=== PATIENT | female | born 1960 | race African-American/Black ===

== ENCOUNTER → 2017-01-01 | Outpatient (CLI) | payer OTHER ==
[~2017-01-01] MED LIST: ASPIRIN 81M81 MG/TA2 PO; BENICAR40 MG PO; COZAAR100 MG PO; FOLIC ACID 11 MG/TA1 PO; MULTIPLE VITAMI1 CAP PO; NORCO 325 MG-51 TAB PO; PLAQUENIL 200M200 MG PO
== END ==
LOC: MC.RAD 13:08
DX: Z12.31 Encounter for screening mammogram for malignant neoplasm of breast (principal)

== ENCOUNTER → 2018-01-14 | Outpatient (CLI) | payer OTHER | LOC: MC.RAD 08:20 | DX: Z12.31 Encounter for screening mammogram for malignant neoplasm of breast (principal) ==

== ENCOUNTER → 2018-06-20 | Outpatient (CLI) | payer OTHER | LOC: COL.VAS 09:06 | DX: I36.1 Nonrheumatic tricuspid (valve) insufficiency (principal); I51.7 Cardiomegaly ==

== ENCOUNTER → 2019-02-21 | Outpatient (CLI) | payer OTHER | LOC: MC.RAD 12:47 | DX: Z12.31 Encounter for screening mammogram for malignant neoplasm of breast (principal) ==

== ENCOUNTER → 2019-12-25 | Outpatient (CLI) | payer OTHER | LOC: COL.VAS 14:04 | DX: I27.20 Pulmonary hypertension, unspecified (principal); I51.7 Cardiomegaly ==

== ENCOUNTER → 2020-03-04 | Outpatient (CLI) | payer OTHER | LOC: MC.RAD 09:20 | DX: Z12.31 Encounter for screening mammogram for malignant neoplasm of breast (principal) ==

== ENCOUNTER → 2021-06-13 | Outpatient (CLI) | payer OTHER | LOC: MC.RAD 10:09 | DX: Z12.31 Encounter for screening mammogram for malignant neoplasm of breast (principal) ==